=== PATIENT | female | born 1995 | race Caucasian/White ===

== ENCOUNTER 2017-01-01 20:11 | Inpatient (IN) ==
[2017-01-01 20:44] LABS: Bilirubin,Urine Negative (Negative); Blood,Urine Moderate (Negative); Clarity,Urine Clear (Clear); Color,Urine Yellow (Yellow); Glucose,Urine (UA) Normal (Normal); Ketones,Urine Negative (Negative); Leukocyte Esterase,Urine Negative (Negative); Nitrite,Urine Negative (Negative); Protein,Urine Negative (Neg-Trace); Specific Gravity,Urine 1.025 (1.010-1.025); Urobilinogen,Urine Normal (Normal)
[2017-01-01 20:46] LABS: Bacteria,Urine None Seen per hpf (None-Few); Hyaline Casts,Urine None Seen per lpf (None-Few); Squamous Epithelial Cell,Urine Many per lpf (None-Few); WBC,Urine 0-3 per hpf (0-3)
[2017-01-01 20:49] LABS: Amphetamine Screen,Urine Negative ng/mL (Cutoff=1000); Barbiturate Screen,Urine Negative ng/mL (Cutoff=200); Benzodiazepines Screen,Urine Negative ng/mL (Cutoff=200); Cannabinoid Screen,Urine Positive ng/mL (Cutoff = 50); Cocaine Screen,Urine Negative ng/mL (Cutoff= 300); Opiate Screen,Urine Negative ng/mL (Cutoff=300); Phencyclidine Screen,Urine Negative ng/mL (Cutoff=25)
--- NOTE | 2017-01-01 20:55 | Emergency Department Note ---
Disposition Clinical Impression: Suicidal ideation Depression Qualifiers: Depression Type: unspecified Qualified Code(s): F32.9 - Major depressive disorder, single episode, unspecified Disposition: Admitted As Inpatient Condition: Fair Forms: ED Satisfaction Letter Time of Disposition: 22:32 Psych HPI - General Chief Complaint: ED Psychiatric Symptoms Stated Complaint: SI/reaction to medication Time Seen by Provider: 01/01/17 20:41 Source: patient, family Mode of arrival: ambulatory Limitations: no limitations Nursing Notes Reviewed: Yes Vital Signs Reviewed: Yes - History of Present Illness HPI Narrative: 21-year-old female comes in with depression and feeling like she wants to hurt herself. She's had medications adjustment with persistent symptoms. Pt complaint: suicidal ideation, feels depressed If medical clearance, reason: psychiatric condition Onset (ago): Just GAMEM[employer] Duration: constant Improves with: none Worsens with: none Context: significant life stressor Associated Psychiatric Symptoms: depression Associated symptoms: Reports: denies other symptoms Treatments prior to arrival: none - Related Data Allergies Allergy/AdvReac Type Severity Reaction Status Date / Time unsure of name of med Allergy Rash Uncoded 01/01/17 20:34 All systems ED: reviewed and negative except as stated. Constitutional: Denies: fever, chills, weakness, weight change Eyes: Denies: eye pain, eye discharge, vision change ENT ED: Denies: ear pain, throat pain, dental pain, hearing loss, epistaxis, congestion, dysphagia Cardiovascular: Denies: chest pain, palpitations, dyspnea on exertion, edema, syncope Respiratory: Denies: cough, dyspnea, wheezes, hemoptysis, stridor Gastrointestinal: Denies: abdominal pain, nausea, vomiting, diarrhea, constipation, hematemesis, melena, hematochezia Genitourinary: Denies: dysuria, frequency, hematuria, discharge Musculoskeletal: Denies: back pain, neck pain, arthralgia, myalgia Integumentary: Denies: rash, abrasion, lesions Neurological: Denies: headache, weakness, numbness, paresthesias, confusion, abnormal gait, vertigo Psychiatric: Reports: depression. Denies: anxiety, suicidal thoughts, homicidal thoughts, auditory hallucinations, visual hallucinations Endocrine: Denies: fatigue Hematological/Lymphatic: Denies: easy bleeding, easy bruising Allergic/Immunologic: Denies: facial swelling, urticaria Past Medical History - Past Medical History Medical history: Reports: other Psychiatric history: Reports: anxiety, depression - Social History Smoking Status: Never smoker Alcohol use: Reports: none Drug use: Reports: marijuana, prescription drug abuse Physical Exam - General Limitations: no limitations General appearance: alert, in no apparent distress - Head Head exam: atraumatic, normocephalic, normal inspection - Eye Eye exam: Present: normal appearance, PERRL, EOMI - ENT ENT exam: normal exam, normal oropharynx, mucous membranes moist - Neck Neck exam: Present: normal inspection, full ROM, trachea midline - Chest Chest inspection: Present: normal inspection, symmetric chest wall rise - Respiratory Respiratory exam: Present: normal lung sounds bilaterally - Cardiovascular Cardiovascular exam: Present: regular rate, normal rhythm, normal heart sounds - Abdominal Exam Abdominal exam: Present: soft, Non-Tender. Absent: tenderness, distention, guarding, rebound, rigidity - Extremities Exam Extremities exam: Present: normal inspection, full ROM. Absent: tenderness, pedal edema - Expanded Lower Extremity Exam Neurovascular/Tendon exam: Absent: motor deficit, sensory deficit, tendon deficit Gait: observed and normal - Back Exam Back exam: Present: normal inspection, full ROM. Absent: tenderness - Neurological Exam Neurological exam: Present: alert, oriented X3 - Psychiatric Psychiatric exam: Present: depressed - Skin Skin exam: Present: warm, dry, intact, normal color Course - Consultations Consultation #1: Patient seen by psychiatry they will admit the patient. Time: 22:31 Vital Signs Temperature 98.1 F 01/01/17 20:30 Pulse Rate 100 01/01/17 20:30 Respiratory Rate 20 01/01/17 20:30 Blood Pressure 127/82 01/01/17 20:30 O2 Sat by Pulse Oximetry 97 01/01/17 20:30 Temperature 98.1 F 01/01/17 20:30 Pulse Rate 100 01/01/17 20:30 Respiratory Rate 20 01/01/17 20:30 Blood Pressure 127/82 01/01/17 20:30 O2 Sat by Pulse Oximetry 97 01/01/17 20:30 Oxygen Delivery Oxygen Delivery Room Air Psych - Lab Data Result diagrams: 01/01/17 21:03 01/01/17 21:03 Lab Results 01/01/17 01/01/17 01/01/17 Range/Units 20:32 20:32 20:32 WBC (4.3-11.1) K/mcL RBC (3.82-4.97) M/mcL Hgb (11.5-15.4) g/dL Hct (35.3-44.9) % MCV (83.0-100.0) fL MCH (28.0-33.3) pg MCHC (31.6-35.5) g/dL RDW (11.5-14.5) % Plt Count (140-400) K/mcL MPV (9.4-12.4) fL Immature Gran % (0-4) % Seg Neutrophils % % Lymphocytes % % Monocytes % % Eosinophils % % Basophils % % Neutrophils # (1.6-8.9) K/mcL Lymphocytes # (0.6-4.6) K/mcL Monocytes # (0.0-1.3) K/mcL Eosinophils # (0.0-0.6) K/mcL Basophils # (0.0-0.2) K/mcL Sodium (136-145) mEq/L Potassium (3.5-4.5) mEq/L Chloride (98-109) mEq/L Carbon Dioxide (19-29) mEq/L BUN (7-20) mg/dL Creatinine (0.57-1.11) mg/dL Est GFR ( Amer) Est GFR (Non-Af Amer) BUN/Creatinine Ratio (6-26) Glucose (70-99) mg/dL Calculated Osmolality (280-300) Calcium (8.6-10.8) mg/dL Serum , Qual (Negative) Urine Color Yellow (Yellow) Urine Clarity Clear (Clear) Urine pH 6.0 (5.0-8.0) pH Units Ur Specific [place] 1.025 (1.010-1.025) Urine Protein Negative (Neg-Trace) mg/dL Urine Glucose (UA) Normal (Normal) mg/dL Urine Ketones Negative (Negative) mg/dL Urine Blood Moderate H (Negative) Urine Nitrite Negative (Negative) Urine Bilirubin Negative (Negative) Urine Urobilinogen Normal (Normal) mg/dL Ur Leukocyte Esterase Negative (Negative) Urine Microscopic RBC 5-15 H (0-3) per hpf Urine Microscopic WBC 0-3 (0-3) per hpf Ur Squamous Epith Cells Many H (None-Few) per lpf Urine Bacteria None Seen (None-Few) per hpf Hyaline Casts None Seen (None-Few) per lpf Urine Test Negative (Negative) Salicylates (15-30) mg/dL Urine Opiates Screen Negative (Njrowi=088) ng/mL Acetaminophen (10-30) mcg/mL Ur Barbiturates Screen Negative (Qhshft=850) ng/mL Ur Phencyclidine Scrn Negative (Cutoff=25) ng/mL Ur Amphetamines Screen Negative (Uwnpos=5675) ng/mL U Benzodiazepines Scrn Negative (Rcmjlr=501) ng/mL Urine Cocaine Screen Negative (Cutoff= 300) ng/mL U Marijuana (THC) Screen Positive H (Cutoff = 50) ng/mL Ethyl Alcohol (0-10) mg/dL 01/01/17 01/01/17 01/01/17 Range/Units 21:03 21:03 21:03 WBC 10.1 (4.3-11.1) K/mcL RBC 4.59 (3.82-4.97) M/mcL Hgb 13.9 (11.5-15.4) g/dL Hct 40.7 (35.3-44.9) % MCV 88.7 (83.0-100.0) fL MCH 30.3 (28.0-33.3) pg MCHC 34.2 (31.6-35.5) g/dL RDW 12.1 (11.5-14.5) % Plt Count 308 (140-400) K/mcL MPV 10.1 (9.4-12.4) fL Immature Gran % 0.3 (0-4) % Seg Neutrophils % 65.4 % Lymphocytes % 27.3 % Monocytes % 6.1 % Eosinophils % 0.6 % Basophils % 0.3 % Neutrophils # 6.6 (1.6-8.9) K/mcL Lymphocytes # 2.8 (0.6-4.6) K/mcL Monocytes # 0.6 (0.0-1.3) K/mcL Eosinophils # 0.1 (0.0-0.6) K/mcL Basophils # 0.0 (0.0-0.2) K/mcL Sodium 140 (136-145) mEq/L Potassium 4.0 (3.5-4.5) mEq/L Chloride 106 (98-109) mEq/L Carbon Dioxide 25 (19-29) mEq/L BUN 9 (7-20) mg/dL Creatinine 0.95 (0.57-1.11) mg/dL Est GFR ( Amer) > 60 Est GFR (Non-Af Amer) > 60 BUN/Creatinine Ratio 9 (6-26) Glucose 102 H (70-99) mg/dL Calculated Osmolality 289 (280-300) Calcium 9.4 (8.6-10.8) mg/dL Serum , Qual Negative (Negative) Urine Color (Yellow) Urine Clarity (Clear) Urine pH (5.0-8.0) pH Units Ur Specific [place] (1.010-1.025) Urine Protein (Neg-Trace) mg/dL Urine Glucose (UA) (Normal) mg/dL Urine Ketones (Negative) mg/dL Urine Blood (Negative) Urine Nitrite (Negative) Urine Bilirubin (Negative) Urine Urobilinogen (Normal) mg/dL Ur Leukocyte Esterase (Negative) Urine Microscopic RBC (0-3) per hpf Urine Microscopic WBC (0-3) per hpf Ur Squamous Epith Cells (None-Few) per lpf Urine Bacteria (None-Few) per hpf Hyaline Casts (None-Few) per lpf Urine Test (Negative) Salicylates < 5.0 L (15-30) mg/dL Urine Opiates Screen (Qbqcyt=302) ng/mL Acetaminophen < 1.0 L (10-30) mcg/mL Ur Barbiturates Screen (Zscrqw=771) ng/mL Ur Phencyclidine Scrn (Cutoff=25) ng/mL Ur Amphetamines Screen (Xsopeh=9180) ng/mL U Benzodiazepines Scrn (Iuidux=009) ng/mL Urine Cocaine Screen (Cutoff= 300) ng/mL U Marijuana (THC) Screen (Cutoff = 50) ng/mL Ethyl Alcohol < 10 (0-10) mg/dL Psychiatric Medical Clearance - Medical Clearance Checklist Does the patient have a NEW psychiatric condition?: No Any abnormalities indicating possible medical illness?: No Any history of medical issues?: No Medical History: No Social History Section defined Any abnormal vital signs prior to transfer?: No Current Vitals: Last Vital Signs Temp 98.1 F 01/01/17 20:30 Pulse 100 01/01/17 20:30 Resp 20 01/01/17 20:30 BP 127/82 01/01/17 20:30 Pulse Ox 97 01/01/17 20:30 Is the patient intoxicated or cognitively impaired?: No Psychiatric Lab Panel: Drug Levels and Toxicity 01/01/17 01/01/17 20:32 21:03 Urine Opiates Screen Negative Acetaminophen < 1.0 L Ur Barbiturates Screen Negative Ur Phencyclidine Scrn Negative Ur Amphetamines Screen Negative U Benzodiazepines Scrn Negative Urine Cocaine Screen Negative U Marijuana (THC) Screen Positive H Ethyl Alcohol < 10 Any abnormalities on the physical exam?: No Any abnormal labs?: No Abnormal Labs: Abnormal lab results Glucose 102 mg/dL (70-99) H 01/01/17 21:03 Urine Blood Moderate (Negative) H 01/01/17 20:32 Urine Microscopic RBC 5-15 per hpf (0-3) H 01/01/17 20:32 Ur Squamous Epith Cells Many per lpf (None-Few) H 01/01/17 20:32 Salicylates < 5.0 mg/dL (15-30) L 01/01/17 21:03 Acetaminophen < 1.0 mcg/mL (10-30) L 01/01/17 21:03 U Marijuana (THC) Screen Positive ng/mL (Cutoff = 50) H 01/01/17 20:32 Does the patient require durable medical equiptment?: No Is the patient ambulatory?: Yes Is the patient a fall risk?: No Has the patient been medically cleared?: Yes Any acute medical condition require Tx prior to transfer?: No Statement of Medical Clearance: I have evaluated the patient, reviewed diagnostic information, and certify that the patient's medical condition is sufficiently stable that transfer to the psychiatric unit does not pose a significant risk of deterioration.
[2017-01-01 21:15] LABS: Basophils % 0.3 %; Eosinophils # 0.1 K/mcL (0.0-0.6); Eosinophils % 0.6 %; Hematocrit 40.7 % (35.3-44.9); Hemoglobin 13.9 g/dL (11.5-15.4); Immature Granulocytes % 0.3 % (0-4); Lymphocytes # 2.8 K/mcL (0.6-4.6); Lymphocytes % 27.3 %; Mean Corpuscular HGB Conc 34.2 g/dL (31.6-35.5); Mean Corpuscular Hemoglobin 30.3 pg (28.0-33.3); Mean Corpuscular Volume 88.7 fL (83.0-100.0); Mean Platelet Volume 10.1 fL (9.4-12.4); Monocytes # 0.6 K/mcL (0.0-1.3); Monocytes % 6.1 %; Neutrophils # 6.6 K/mcL (1.6-8.9); Platelet Count 308 K/mcL (140-400); Red Blood Count 4.59 M/mcL (3.82-4.97); Red Cell Distribution Width 12.1 % (11.5-14.5); Segmented Neutrophils % 65.4 %
[2017-01-01 21:30] LABS: BUN/Creatinine Ratio 9 (6-26); Blood Urea Nitrogen 9 mg/dL (7-20); Calcium 9.4 mg/dL (8.6-10.8); Carbon Dioxide 25 mEq/L (19-29); Chloride 106 mEq/L (98-109); Glucose 102 mg/dL (70-99); Osmolality,Calculated 289 (280-300); Sodium 140 mEq/L (136-145); eGFR For African Americans > 60; eGFR For Non-African Americans > 60
[2017-01-01 21:31] LABS: Acetaminophen < 1.0 mcg/mL (10-30); Ethanol < 10 mg/dL (0-10); Salicylate < 5.0 mg/dL (15-30)
[2017-01-01] MEDS ORDERED: Ibuprofen 400 MG TABLET PO PRN (22:44)
[2017-01-01] MEDS ORDERED: Haloperidol Lactate 5 MG/ML VIAL IM PRN (22:44)
[2017-01-01] MEDS ORDERED: *HR* LORazepam 2 MG/ML VIAL IM PRN (22:44)
[2017-01-01] MEDS ORDERED: MOM Conc 10 ML UD.LIQ PO PRN (22:44)
[2017-01-01] MEDS ORDERED: Mag Hydrox/Al Hydrox/Simeth 30 ML UDC PO PRN (22:44)
[2017-01-01] MEDS: traZODone 50 MG TABLET PO PRN (23:52)
[2017-01-01] MEDS: hydrOXYzine pamoate 25 MG CAPSULE PO PRN (23:53)
[2017-01-02] MEDS: hydrOXYzine pamoate 25 MG CAPSULE PO PRN (10:43)
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
[2017-01-02] MEDS: *HR* LORazepam 1 MG TABLET PO PRN ×2 (12:09→20:31)
[2017-01-02] MEDS: NORG EE PO SCH (20:32)
[2017-01-02] MEDS: traZODone 50 MG TABLET PO PRN (20:32)
--- NOTE | 2017-01-03 14:09 | Psychiatry Progress Note ---
Date of Encounter: 01/03/17 Time of Encounter: 14:07 Subjective Interval history: Patient is seen for follow-up. She reports sleeping better, her vision is better, less confused, occasionally she will feel anxious and denies any suicidal thoughts. She attends groups and denies any side effects of current medication. Review of Systems Psychiatric: Reports: depression, anxiety, abnormal sleep pattern, suicidal ideation, confusion, difficulty concentrating Objective: Exam Patient orientation: Yes Person, Yes Time, Yes Place Level of alertness: Alert Patient appearance: Appropriate, Well Groomed Behavior: calm, cooperative, anxious Psychomotor activity: Normal Eye contact: Maintains Eye Contact Mood description: Anxious Affect description: congruent with mood, full range Speech pattern: Normal rate, Normal rhythm, Normal tone Speech volume: Normal Thought process: Linear, Goal Oriented Thought content: No Suicidal ideation, No Homicidal ideation, No Overt delusions Perceptual disturbances: No Auditory hallucinations, No Visual hallucinations Judgment: Fair Insight: Partial Results - Vital Signs Vital Signs: Temp Pulse Resp BP Pulse Ox 99.0 F 116 16 125/84 97 01/03/17 09:00 01/03/17 09:00 01/03/17 09:00 01/03/17 09:00 01/01/17 20:30 Assessment and Plan (1) Depression, major, recurrent, moderate Current visit: Yes Status: Acute Plan: Continue hospitalization, Close observation, Suicide Precautions per unit protocol, Encourage participation in unit milieu, Group Therapy, Monitor sleep, Monitor appetite Risks, benefits, side effects, alternatives discussed w/pt: Yes Patient agreeable to treatment: Yes Consult Discharge Plan - Plan Referrals: NO,PCP [Primary Care Provider] -
[2017-01-03] MEDS: *HR* LORazepam 1 MG TABLET PO PRN ×2 (15:15→21:06)
[2017-01-03] MEDS: NORG EE PO SCH (21:06)
[2017-01-03] MEDS: traZODone 50 MG TABLET PO PRN (21:06)
[2017-01-04] MEDS: *HR* LORazepam 1 MG TABLET PO PRN (09:21)
[2017-01-04 09:43] VITALS: BP 133/71
--- NOTE | 2017-01-04 13:05 | Discharge Summary ---
Date of Encounter: 01/04/17 Time of Encounter: 12:30 Diagnosis - Discharge Diagnosis (1) Depression, major, recurrent, moderate Status: Acute Medications - Discharge Medications Prescriptions: Escitalopram [Lexapro] 15 mg PO DAILY #45 tablet LORazepam [Ativan] 0.5 mg PO BID PRN #30 tablet PRN Reason: Anxiety TraZODone 50 mg PO HS PRN #30 tablet PRN Reason: Insomnia Naproxen [Naprosyn] 500 mg PO BID PRN 01/01/17 [History] Norgestimate-Ethinyl Estradiol [Norg-Ee 0.18-0.215-0.25/0.025] 1 tab PO DAILY [History] Escitalopram [Lexapro] 15 mg PO DAILY #45 tablet 01/04/17 [Rx] LORazepam [Ativan] 0.5 mg PO BID PRN #30 tablet 01/04/17 [Rx] TraZODone 50 mg PO HS PRN #30 tablet 01/04/17 [Rx] Allergies unsure of name of med Allergy (Uncoded 01/01/17 20:34) Rash Provider Date of admission: 01/01/17 22:35 Primary care physician: PCP EMMIE Discharging clinician: Chas Hammond Assessment and Plan - Patient/Caregiver Discharge Instructions Activity: resume usual activities as tolerated Diet: regular diet - Follow up Plan Follow up with: EMMIE,PCP [Primary Care Provider] - Functional capacity at discharge: independent ambulation Overall status at discharge: Stable Disposition: Home, Self-Care Hospital Course Hospital course: Ms. Hagen is a 21 year old female admitted from the emergency room for evaluation suicidal ideation and reaction to medication. For details of admission please see H&P On the units patient was evaluated and her medication were ordered including trazodone at bedtime to help her sleep, she also used lorazepam as needed for anxiety. Patient initially reported side effects from Abilify including blurring of vision and sense of confusion and inability to focus. Abilify was discontinued and patient reported improvements of her vision to normal level and denied any problem with his attentional focusing. Patient reported improved sleep and denied any suicidal ideation. She was anxious to go back to school to take her final exams and also to go back to work. Prior to discharge patient was medically stable, denied any side effects to medication and denies suicidal ideation. Her discharge and follow-up plans will be Completed by the social service worker on Thursday and patient would be notified. - Time Spent with Patient Total time spent providing and/or coordinating discharge services: Greater than 30 minutes Quality - Multiple Antipsychotics Patient discharged on 2 or more antipsychotic medications: No Procedures - Procedures Procedures: Medication Management, Crisis Stabilization, Supportive Therapy, Group Therapy, Psychoeducational Therapy Mental Status Exam - Mental Status Exam Patient orientation: Yes Person, Yes Time, Yes Place Level of alertness: Alert Patient appearance: Appropriate, Well Groomed Behavior: calm, cooperative, anxious Psychomotor activity: Normal Eye contact: Maintains Eye Contact Mood description: Euthymic/stable Affect description: congruent with mood, full range Speech pattern: Normal rate, Normal rhythm, Normal tone Speech Volume: Normal Thought process: Linear, Goal Oriented Thought Content: No Suicidal ideation, No Homicidal ideation, No Overt delusions Perceptual Disturbances: No Auditory hallucinations, No Visual hallucinations Judgment: Limited Insight: Partial
== END 2017-01-04 15:50 | disposition home or self-care (01) | DRG 885 ==
LOC: EMEROO 20:11 → 1ANU 22:35
PROVIDERS: ADMIT Psychiatry & Neurology Psychiatry; ATTEND Psychiatry & Neurology Psychiatry